=== PATIENT | female | born 1935 | race Caucasian/White ===

== ENCOUNTER 2017-04-13 10:24 | Outpatient (CLI) | payer MEDICARE, OTHER ==
[2014-04-02 11:23] VITALS: BP 108/68
--- NOTE | 2017-04-13 11:49 | Diagnostic Imaging Report ---
[facility] [address] [facility].[address] [address] Report Submission Date: Apr 13, 2017 11:46:02 AM CDT Patient Study Name: SHANTEL VARELA Date: Apr 13, 2017 10:39:25 AM CDT Modality Type: CR Gender: F Description: ABDOMEN : 35 Institution: [facility] Physician: REGLA NG (HIGH PRESSURE BOILER OPERATOR) - OP Examination: Obstruction series History: Abdominal discomfort Findings: 3 views obtained of the abdomen. No abnormal dilation of the large or small bowel. Air and stool throughout the large bowel. Moderate amount of stool within the rectosigmoid region. Abdominal surgical clips. Pelvic phleboliths. Osseous structures are appropriate for age. Impression: Moderate amount of stool within the rectosigmoid region. No obstruction. Electronically signed on Apr 13, 2017 11:46:02 AM CDT by: Anthony MENDOZA
== END 2017-04-13 13:03 ==
LOC: EDBD 10:24 → RAD 10:24
PROVIDERS: ATTEND Nurse Practitioner Family
DX: R10.9 Unspecified abdominal pain (principal)
CPT/HCPCS: 74020

== ENCOUNTER 2018-02-05 15:44 | Outpatient (CLI) | payer MEDICARE, OTHER ==
[2014-04-02 11:23] VITALS: BP 108/68
--- NOTE | 2018-02-05 17:55 | Diagnostic Imaging Report ---
REGLA NG (OIL BOILER) - OP [facility] [address] [facility].[address] [address] Report Submission Date: Feb 05, 2018 4:09:36 PM CDT Patient Study Name: SHANTEL VARELA Date: Feb 05, 2018 3:48:15 PM CDT Modality Type: DX Gender: F Description: ABDOMEN : 35 Institution: [facility] Physician: REGLA NG (ALAN) - OP KUB History: Constipation and abdominal pain Flat and upright views of the abdomen were obtained which demonstrate no free air. Lung bases are clear. There has been a cholecystectomy. Multiple surgical clips are present in the abdomen bilaterally. There is generally increased stool throughout the entire colon consistent with moderate to severe constipation. No dilated small bowel loops are noted. Round calcifications are present in the pelvis bilaterally, likely phleboliths. Impression: Generally increased stool throughout the colon consistent with moderately severe constipation. Electronically signed on Feb 05, 2018 4:09:36 PM CDT by: Katya MENDOZA
== END 2018-02-05 15:46 ==
LOC: RAD 15:44
PROVIDERS: ATTEND Nurse Practitioner Family
DX: K59.00 Constipation, unspecified (principal)
CPT/HCPCS: 74019

== ENCOUNTER 2018-08-18 12:28 | Outpatient (CLI) | payer MEDICARE, OTHER ==
[2014-04-02 11:23] VITALS: BP 108/68
--- NOTE | 2018-08-18 13:45 | Diagnostic Imaging Report ---
REGLA NG (PLATE ROLLER) - OP [facility] [address] [facility].[address] [address] Report Submission Date: Aug 18, 2018 1:28:53 PM MASKING MACHINE OPERATOR Patient Study Name: SHANTEL VARELA Date: Aug 18, 2018 12:31:36 PM MASKING MACHINE OPERATOR Modality Type: DX Gender: F Description: ABDOMEN : 35 Institution: [facility] Physician: REGLA NG (ALAN) - OP KUB History: Abdominal pain Flat and upright views of the abdomen were obtained which demonstrate no evidence for free air. Lung bases are clear. There are clips from a cholecystectomy and there are surgical clips within the mid abdomen bilaterally. There is a large amount of stool throughout the colon consistent with constipation. There is a specially a large amount of stool in the rectosigmoid consistent with fecal impaction. There is a round calcification in the right hemipelvis, likely a phlebolith. Impression: Constipation. Large amount of stool in the rectosigmoid consistent with fecal impaction. Electronically signed on Aug 18, 2018 1:28:53 PM MASKING MACHINE OPERATOR by: Katya MENDOZA
== END 2018-08-18 12:33 | disposition home or self-care (01) ==
LOC: RAD 12:28
PROVIDERS: ATTEND Nurse Practitioner Family
DX: K59.00 Constipation, unspecified (principal)
CPT/HCPCS: 74019

== ENCOUNTER 2018-09-03 10:00 | Outpatient (CLI) | payer MEDICARE, OTHER ==
[2014-04-02 11:23] VITALS: BP 108/68
--- NOTE | 2018-09-03 19:02 | Diagnostic Imaging Report ---
REGLA NG (ALAN) - OP [facility] [address] [facility].[address] [address] Report Submission Date: Sep 03, 2018 11:08:55 AM BINDER ROLLER Patient Study Name: SHANTEL VARELA Date: Sep 03, 2018 10:06:27 AM BINDER ROLLER Modality Type: DX Gender: F Description: ABDOMEN : 35 Institution: [facility] Physician: REGLA NG (LAAN) - OP Examination: Obstruction series History: Constipation for 1 month (Hx) Comparison exam: 18 August 2018 Findings: 2 views obtained of the abdomen. No abnormal small bowel dilation. Air and stool throughout the large bowel. Moderate amount of stool within the rectosigmoid region. Abdominal surgical clips. Pelvic phleboliths. Osseous structures are appropriate for age. Impression: Continued large bowel stool - constipation. Electronically signed on Sep 03, 2018 11:08:55 AM BINDER ROLLER by: Anthony MENDOZA
== END 2018-09-03 10:09 ==
LOC: RAD 10:00
PROVIDERS: ATTEND Nurse Practitioner Family
DX: K59.00 Constipation, unspecified (principal)
CPT/HCPCS: 74019

== ENCOUNTER 2018-09-06 12:05 | Outpatient (CLI) | payer MEDICARE, OTHER ==
[2014-04-02 11:23] VITALS: BP 108/68
--- NOTE | 2018-09-06 13:25 | Diagnostic Imaging Report ---
REGLA NG (ALAN) - OP [facility] [address] [facility].[address] [address] Report Submission Date: Sep 06, 2018 1:01:32 PM KNUCKLE BENDER Patient Study Name: SHANTEL VARELA Date: Sep 06, 2018 12:21:47 PM KNUCKLE BENDER MRN: [id number] Modality Type: DX Gender: F Description: ABDOMEN : 35 Institution: [facility] Physician: REGLA NG (ALAN) - OP Obstructive series History: Constipation for 3 months Flat and upright views of the abdomen demonstrates the lung bases to be clear. No free air is noted. Surgical clips are present at the mid left abdomen and there has been a cholecystectomy. There is no stool in the colon. Air is present throughout the colon and there are several air-filled loops of small bowel. Overall, these findings are consistent with a mild ileus. Multiple calcifications are present in pelvis consistent phleboliths. Impression: Nonobstructive bowel gas pattern. There is essentially no stool in the colon. Air is present throughout a mildly distended colon and there are air-filled loops of small bowel. Overall, these findings are most consistent with a mild ileus type pattern. Multiple pelvic phleboliths. Electronically signed on Sep 06, 2018 1:01:32 PM KNUCKLE BENDER by: Katya MENDOZA
== END 2018-09-06 12:07 ==
LOC: RAD 12:05
PROVIDERS: ATTEND Nurse Practitioner Family
DX: I87.8 Other specified disorders of veins (principal); K59.00 Constipation, unspecified
CPT/HCPCS: 74019